=== PATIENT | female | born 1970 | race Caucasian/White ===

== ENCOUNTER 2018-08-12 19:39 | Emergency (ER) | payer SELFPAY ==
[2018-08-12] MEDS ORDERED: hydrOXYzine 25 MG TAB PO SCH (21:00)
== END 2018-08-12 21:18 | disposition home or self-care (01) ==
LOC: ERS 19:39
DX: J02.9 Acute pharyngitis, unspecified (principal); F41.9 Anxiety disorder, unspecified
CPT/HCPCS: 87081; 87430; 99283